=== PATIENT | female | born 1995 | race Caucasian/White ===

== ENCOUNTER 2017-02-27 20:56 | Emergency (ER) | payer OTHER ==
[2017-02-27 21:43] VITALS: BP 130/73; PULSE 90; TEMP 98.5; BMI 21.7
--- NOTE | 2017-02-27 22:11 | PDOC ---
History of Present Illness - General History Source: Patient Exam Limitations: No Limitations - History of Present Illness Initial Comments: 02/27/17 22:22 The patient is a 21-year-old female, with a significant past medical history of PCOS and anxiety, who presents to the ED with pain to medial aspect of left lower leg (side of tibial region). The patient denies having any recent trauma to the area. She reports being on OCPs for her polycystic ovarian disease. The patient denies any fever, chills, nausea, vomiting, diarrhea, or abdominal pain. The patient denies having any other complaints. <Patricia Chester - Last Filed: 02/27/17 22:21> - General History Source: Patient <Keith Christensen - Last Filed: 02/27/17 23:46> - General Chief Complaint: Pain Stated Complaint: LFT LEG PAIN Time Seen by Provider: 02/27/17 22:09 Past History <Patricia Chester - Last Filed: 02/27/17 22:21> - Past Medical History Anemia: No Asthma: No Cancer: No Cardiac Disorders: No Disorders: Yes (PCOS) Psychiatric Problems: Yes (anxiety) Suicide Attempt (Hx): No - Immunization History Td Vaccination: Yes Immunization Up to Date: Yes - Psycho/Social/Smoking Cessation Hx Anxiety: Yes Suicidal Ideation: No Smoking Status: No Smoking History: Never smoked Years of Tobacco Use: 0 Number of Cigarettes Smoked Daily: 0 Cigars Per Day: 0 Information on smoking cessation initiated: No Hx Alcohol Use: No Drug/Substance Use Hx: No Substance Use Type: None <Keith Christensen - Last Filed: 02/27/17 23:46> - Past Medical History Allergies/Adverse Reactions: Allergies Allergy/AdvReac Type Severity Reaction Status Date / Time No Known Allergies Allergy Verified 02/27/17 21:33 Home Medications: Ambulatory Orders NK [No Known Home Medication] 12/13/15 Review of Systems - Review of Systems Able to Perform ROS?: Yes Comments:: 02/27/17 22:22 CONSTITUTIONAL: Absent: fever, no chills, no fatigue EYES: Absent: visual changes ENT: Absent: ear pain, no sore throat CARDIOVASCULAR: Absent: chest pain, no palpitations RESPIRATORY: Absent: cough, no SOB GI: Absent: abdominal pain, no nausea, no vomiting, no constipation, no diarrhea GENITOURINARY: Absent: dysuria, no frequency, no hematuria MUSKULOSKELETAL: Present: left leg pain Absent: back pain, no arthralgia SKIN: Absent: rash NEURO: Absent: headache <Patricia Chester - Last Filed: 02/27/17 22:21> *Physical Exam - Vital Signs Last Vital Signs Temp Pulse Resp BP Pulse Ox 98.5 F 90 18 130/73 100 02/27/17 21:33 02/27/17 21:33 02/27/17 21:33 02/27/17 21:33 02/27/17 21:33 - Physical Exam Comments: 02/27/17 22:22 GENERAL: Well-appearing, well-nourished. No apparent distress. HEENT: Normocephalic, atraumatic. PERRL, EOM intact. CARDIOVASCULAR: Normal S1, S2. Regular rate and rhythm. PULMONARY: Clear to auscultation bilaterally. ABDOMEN: Soft, non-distended, non-tender. EXTREMITIES: Normal ROM in all four extremities. No gross deformities. SKIN: Warm, dry. No rash NEUROLOGICAL: No focal neurological deficits. <Patricia Chester - Last Filed: 02/27/17 22:21> - Vital Signs Last Vital Signs Temp Pulse Resp BP Pulse Ox 98.5 F 90 18 130/73 100 02/27/17 21:33 02/27/17 21:33 02/27/17 21:33 02/27/17 21:33 02/27/17 21:33 <Keith Christensen - Last Filed: 02/27/17 23:46> Medical Decision Making - Medical Decision Making 02/27/17 23:45 Dr. Christensen: The scribe's documentation has been prepared under my direction and personally reviewed by me in its entirery. I confirm that the note above accurately reflects all work, treatment, procedures, and medical decision making performed by me. 02/27/17 23:45 <Keith Christensen - Last Filed: 02/27/17 23:46> *DC/Admit/Observation/Transfer - Attestations Scribe Attestion: 02/27/17 22:25 Documentation prepared by Patricia Chester, acting as medical auditor for Keith Christensen MD. <Patricia Chester - Last Filed: 02/27/17 22:21> - Discharge Dispostion Admit: No <Keith Christensen - Last Filed: 02/27/17 23:46> Diagnosis at time of Disposition: Leg pain, left - Discharge Dispostion Disposition: HOME Condition at time of disposition: Stable - Referrals Referrals: Susy Thomason MD [Primary Care Provider] - - Patient Instructions Printed Discharge Instructions: DI for Leg Pain Additional Instructions: Take Motrin or Tylenol for pain as needed. Follow up wth your doctor for further evaluation.
== END 2017-02-27 23:58 | disposition home or self-care (01) ==
LOC: JER 20:56
DX: M79.605 Pain in left leg (principal); E28.2 Polycystic ovarian syndrome; F41.9 Anxiety disorder, unspecified
CPT/HCPCS: 93970-TC; 99282-25

== ENCOUNTER 2017-07-21 13:17 | Emergency (ER) | payer SELFPAY ==
[2017-07-21 13:20] VITALS: TEMP 98.3; BMI 21.4
--- NOTE | 2017-07-21 13:57 | PDOC ---
History of Present Illness - General Chief Complaint: Chest Pain Stated Complaint: CHEST PAIN Time Seen by Provider: 07/21/17 13:37 - History of Present Illness Initial Comments: 07/21/17 13:52 The patient is a 21 yo f w/ no PMH comes into the ED c/o left sided chest pain for the past 2 months. Patient states that she has had a sharp chest pain which starts at the left sternal border and radiates under her left breast. The pain is constant, but varies in intensity. The pain is exacerbated by deep breathing and has no relieving factors. The pain has been getting Patient is on OCPs, but denies SOB, palpitations, leg pain, leg swelling, fevers, chills, cough, hemoptysis. Past History - Past Medical History Allergies/Adverse Reactions: Allergies Allergy/AdvReac Type Severity Reaction Status Date / Time No Known Allergies Allergy Verified 07/21/17 13:28 Home Medications: Ambulatory Orders NK [No Known Home Medication] 12/13/15 Anemia: No Asthma: No Cancer: No Cardiac Disorders: No COPD: No Disorders: Yes (PCOS) Psychiatric Problems: Yes (anxiety) - Immunization History Td Vaccination: Yes Immunization Up to Date: Yes - Suicide/Smoking/Psychosocial Hx Smoking Status: No Smoking History: Never smoked Years of Tobacco Use: 0 Number of Cigarettes Smoked Daily: 0 Cigars Per Day: 0 Information on smoking cessation initiated: No Hx Alcohol Use: No Drug/Substance Use Hx: No Substance Use Type: None Review of Systems - Review of Systems Able to Perform ROS?: Yes Is the patient limited [place] proficient: No Constitutional: No: Chills, Fever HEENTM: No: Recent change in vision Respiratory: No: Cough, Shortness of Breath, SOB with Exertion Cardiac (ROS): Yes: Chest Pain. No: Edema, Palpitations ABD/GI: No: Abd. Pain w/ defecation, Diarrhea, Nausea, Vomiting : No: Burning, Dysuria, Frequency Musculoskeletal: No: Joint Pain, Muscle Pain Integumentary: No: Bruising, Erythema Neurological: No: Headache *Physical Exam - Vital Signs Last Vital Signs Temp Pulse Resp BP Pulse Ox 98.3 F 90 18 123/72 100 07/21/17 13:19 07/21/17 13:19 07/21/17 13:19 07/21/17 13:19 07/21/17 13:19 - Physical Exam General Appearance: Yes: Appropriately Dressed. No: Apparent Distress HEENT: positive: DIANA Neck: positive: Trachea midline. negative: Tender Respiratory/Chest: positive: Chest Tender (the patient's chest pain is reproducible on palpation of the affected area ), Lungs Clear, Normal Breath Sounds. negative: Respiratory Distress, Accessory Muscle Use Cardiovascular: positive: Regular Rhythm, Regular Rate, S1, S2. negative: Edema , JVD, Murmur, Gallop/S3, Gallop/S4 Gastrointestinal/Abdominal: positive: Normal Bowel Sounds, Flat, Soft. negative : Tender Neurologic: positive: Fully Oriented, Alert, Normal Mood/Affect, Normal Response Heart Score/ECG Review - History History: Slightly suspicious - Electrocardiogram EKG: Normal - Age Age: </= 45 - Risk Factors Based on the list above the patient has:: No risk factors known - ECG Intrepretation Rhythm: Regular Rhythm - [place] Monroe: Normal ED Treatment Course - LABORATORY CBC & Chemistry Diagram: 07/21/17 15:57 07/21/17 15:57 Medical Decision Making - Medical Decision Making 07/21/17 15:17 The patient is a 21 yo f w/ no PMH who c/o a 2 month history of worsening left sided chest pain. Patient is on OCPs, but is not currently complaining of any signs or symptoms of DVT. PE cannot be ruled out by PERC rule. PE must be ruled out in this case. -CBC, CMP -Troponin -D-dimer -coags -tylenol -will reassess 07/21/17 17:23 -CBC, CMP, troponin WNL -patient much improved after tylenol -D-dimer pending 07/21/17 18:15 -D-Dimer negative -Patient is improved after tylenol -patient is stable for discharge home with close follow up -tylenol for pain -return parameters discussed. *DC/Admit/Observation/Transfer Diagnosis at time of Disposition: Atypical chest pain - Discharge Dispostion Disposition: HOME Condition at time of disposition: Improved Admit: No - Referrals Referrals: Susy Thomason MD [Primary Care Provider] - Brad Sanders MD [Staff Physician] - - Patient Instructions Printed Discharge Instructions: DI for Atypical Chest Pain, DI for Chest Pain Additional Instructions: You should follow up with your primary doctor within 1-2 days of going home. You should also follow up with a heart doctor within 1-2 days of going home. You may take tylenol every 6 hours for the pain. If your chest pain becomes worse, you develop shortness of breath or if any of your symptoms get worse, please call your doctor or return to the ED. - Post Discharge Activity
[2017-07-21] MEDS ORDERED: ACETAMINOPHEN 325 MG TABLET (FP) PO ONE (15:10)
[2017-07-21] MEDS ORDERED: ACETAMINOPHEN 325 MG TABLET (FP) ONE (16:00)
[2017-07-21 16:12] LABS: BASOPHIL 0.3 % (0-2.0); EOSINOPHIL 1.2 % (0-4.5); MCH 29.3 pg (25.7-33.7); MCHC 33.5 g/dl (32.0-36.0); MEAN CELL VOLUME 87.5 fl (80-96); MEAN PLT VOLUME 8.5 fl (7.5-11.1); NEUTROPHILS 58.6 % (42.8-82.8); PLATELET COUNT 295 K/MM3 (134-434); RDW 13.3 % (11.6-15.6); WHITE BLOOD COUNT 6.8 K/mm3 (4.0-10.0)
[2017-07-21 16:30] LABS: ALBUMIN 3.9 g/dl (3.4-5.0); ALK PHOS 89 U/L (45-117); ANION GAP 8 (8-16); BILIRUBIN,TOTAL 0.7 mg/dL (0.2-1.0); CO2 26 mmol/L (21-32); CREATININE 0.7 mg/dL (0.55-1.02); GLUCOSE,RANDOM 76 mg/dL (74-106); SGOT/AST 11 U/L (15-37); SGPT/ALT 14 U/L (12-78); TOT PROT 7.2 g/dl (6.4-8.2)
--- NOTE | 2017-07-21 17:11 | PDOC ---
Attending Attestation - Resident Resident Name: HarmeetharmeetlindseymichelleCamilo - ED Attending Attestation I have performed the following: I have examined & evaluated the patient, The case was reviewed & discussed with the resident, I agree w/resident's findings & plan, Exceptions are as noted - HPI HPI: 07/21/17 17:05 21 year old F c no past medical history p/w left sided pleuritic chest pain x 2 months. The patient reports that she has been feeling persistent, daily chronic left sided pleuritic chest pain daily. Initially thought it was musculoskeletal , but the pain persistent. Denies SOB. States that palpation worsens the pain. Does take OCPs. Denies recent travels, unilateral calf pain, prior DVTs. - Physicial Exam PE: 07/21/17 17:12 GENERAL: Awake, alert, and fully oriented, in no acute distress. HEAD: No signs of trauma EYES: PERRLA, EOMI, sclera anicteric, conjunctiva clear ENT: Auricles normal inspection, hearing grossly normal, nares patent, oropharynx clear without exudates. NECK: Normal ROM, supple, no lymphadenopathy, JVD, or masses LUNGS: Breath sounds equal, clear to auscultation bilaterally. No wheezes, and no crackles HEART: Regular rate and rhythm, normal S1 and S2, no murmurs, rubs or gallops Reproducible midsternal tenderness to palpation to sternum. ABDOMEN: Soft, nontender, normoactive bowel sounds. No guarding, no rebound. No masses EXTREMITIES: Normal range of motion, no edema. No clubbing or cyanosis. No cords, erythema, or tenderness NEUROLOGICAL: Cranial nerves II through XII grossly intact. Normal speech, normal gait SKIN: Warm, Dry, normal turgor, no rashes or lesions noted. - Medical Decision Making 07/21/17 17:13 Vital Signs Temp Pulse Resp BP Pulse Ox 98.3 F 90 18 123/72 100 07/21/17 13:19 07/21/17 13:19 07/21/17 13:19 07/21/17 13:19 07/21/17 13:55 21 year old female with no past medical history presents with chest pain. Given on OCPs and pleuritic chest pain, will r/o PE c/ d-dimer, though may be MSK Low suspicion for ACS. Pain control and reassess. 07/21/17 18:05 CBC, BMP 07/21/17 15:57 07/21/17 15:57 CMP Sodium 139 mmol/L (136-145) 07/21/17 15:57 Potassium 4.2 mmol/L (3.5-5.1) 07/21/17 15:57 Chloride 105 mmol/L (98-107) 07/21/17 15:57 Carbon Dioxide 26 mmol/L (21-32) 07/21/17 15:57 Anion Gap 8 (8-16) 07/21/17 15:57 BUN 9 mg/dL (7-18) 07/21/17 15:57 Creatinine 0.7 mg/dL (0.55-1.02) 07/21/17 15:57 Creat Clearance w eGFR > 60 (>60) 07/21/17 15:57 Random Glucose 76 mg/dL (74-106) 07/21/17 15:57 Calcium 9.0 mg/dL (8.5-10.1) 07/21/17 15:57 Total Bilirubin 0.7 mg/dL (0.2-1.0) D 07/21/17 15:57 AST 11 U/L (15-37) L 07/21/17 15:57 ALT 14 U/L (12-78) 07/21/17 15:57 Alkaline Phosphatase 89 U/L (45-117) 07/21/17 15:57 Troponin I < 0.02 ng/ml (0.00-0.05) 07/21/17 15:57 Total Protein 7.2 g/dl (6.4-8.2) 07/21/17 15:57 Albumin 3.9 g/dl (3.4-5.0) 07/21/17 15:57 Serum , Qual Negative 07/21/17 17:40 Pt's chest pain improved drastically with tylenol. D-dimer negative. Given these circumstances and a negative d-dimer, I feel okay discharging the patient with outpatient follow up with immigration inspector. Discharge diagnosis: atypical chest pain Heart Score/ECG Review - History History: Slightly suspicious - Electrocardiogram EKG: Normal - Age Age: </= 45 - Risk Factors Based on the list above the patient has:: No risk factors known - Troponin Troponin: </= normal limit - Score Heart Score - Total: 0 #1 ECG reviewed & interpreted by me at: 14:30 07/21/17 17:26 NSR 87, no std/ian, normal axis, normal intervals, QTC 416 msec. No right heart strain.
[2017-07-21 18:00] LABS: D-DIMER < 200 ng/ml (<200-235)
[2017-07-21 18:57] VITALS: BP 124/78; PULSE 80
--- NOTE | 2017-07-28 09:55 | EKG ---
Test Reason : Blood Pressure : / mmHG Vent. Rate : 087 BPM Atrial Rate : 087 BPM P-R Int : 138 ms QRS Dur : 076 ms QT Int : 346 ms P-R-T Axes : 049 077 054 degrees QTc Int : 416 ms NORMAL SINUS RHYTHM NORMAL ECG WHEN COMPARED WITH ECG OF 15-SEP-2015 08:34, NO SIGNIFICANT CHANGE WAS FOUND Confirmed by DORIAN ZAMAN MD ([id number]) on 07/28/2017 9:55:15 AM Referred By: Confirmed By:DORIAN ZAMAN MD
== END 2017-07-21 18:56 | disposition home or self-care (01) ==
LOC: JER 13:17
DX: R07.89 Other chest pain (principal); F41.9 Anxiety disorder, unspecified; E28.2 Polycystic ovarian syndrome
CPT/HCPCS: 36415; 80053; 84484; 84703; 85025; 85379; 85610; 93005; 93010; 99284-25